=== PATIENT | female | born 1970 | race Caucasian/White ===

== ENCOUNTER 2022-03-07 09:18 | Outpatient (CLI) | payer BC, OTHER ==
--- NOTE | 2022-03-07 11:39 | CT Report ---
PROCEDURE: IVP INDICATIONS: GROSS HEMATURIA CONTRAST: IV CONTRAST: Optiray 320 ml: 140 PO CONTRAST: *NO PO CONTRAST TECHNIQUE: After the administration of oral and intravenous contrast, 5 mm thick sections acquired from the diap hragms to the symphysis. 5 mm thick coronal and sagittal reformats were acquired. For radiation dos e reduction, the following was used: automated exposure control, adjustment of mA and/or kV accordin g to patient size. COMPARISON: None. FINDINGS: Image quality: Excellent. Lung bases: Lung bases are clear. Heart size is normal. Urinary system: Both kidneys are normal in size and enhancement. Contrast-filled renal calyces are normal in morphology. Contrast filled portions of both ureters are normal in caliber. Bladder wall thickness is normal. Solid organs: Liver and spleen are normal in size and enhancement. Gallbladder is unremarkable Morris iary system is non dilated. Pancreas enhances normally. No adrenal nodules. Peritoneum and bowel: Bowel loops demonstrate normal wall thickness and caliber. No free fluid or a ir. Nodes and vessels: No retroperitoneal or mesenteric adenopathy by size criteria. Aorta and inferior vena cava are normal in size. Abdominal wall: Fat-containing ventral hernia. Pelvis: No pathologic free pelvic fluid. No inguinal hernias or adenopathy. Bones: No suspicious bony lesions. No vertebral body compression fractures. IMPRESSION: No renal, ureteral or bladder calculi. No mass lesions. Reviewed by: Es Dean MD on 03/07/2022 11:38 AM PDT Approved by: Es Dean MD on 03/07/2022 11:38 AM PDT Station ID: [id number]
== END 2022-03-07 09:19 | disposition home or self-care (01) ==
LOC: DI 09:18
PROVIDERS: ATTEND Urology
DX: Z87.448 Personal history of other diseases of urinary system (principal)
CPT/HCPCS: 74178; Q9967

== ENCOUNTER 2023-08-17 08:20 | Outpatient (CLI) | payer BC, OTHER ==
--- NOTE | 2023-08-17 13:49 | DEXA Report ---
PROCEDURE: Dexa Spine and/or Hip INDICATIONS: OSTEOPENIA TECHNIQUE: Dual energy x-ray absorptiometry (DXA) was performed on a SimuForm System. Regions measur ed are the AP Spine, femoral neck, and if needed forearm. COMPARISON: None. FINDINGS: Lumbar Spine: Bone Mineral Density: 0.907 g/cm/cm,T score: -2.3. Left Femoral Neck: Bone Mineral Density: 0.690 g/cm/cm, T score: -2.5. Left Hip: Bone Mineral Density: 0.828 g/cm/cm,T score: -1.4. (T score greater or equal to -1.0: NORMAL) (T score from -1.1 to -2.4: OSTEOPENIA) (T score less than or equal to -2.5 to: OSTEOPOROSIS) Impression: By WHO criteria, this patient has osteoporosis. Patients with diagnosis of osteoporosis or osteopenia should have regular bone mineral density assess ment. For those eligible for Medicare, routine testing is allowed once every 2 years. Testing frequ ency can be increased for patients who have rapidly progressing disease or for those who are receivin g medical therapy to restore bone mass. Reviewed by: Chente Wells MD on 08/17/2023 1:48 PM PST Approved by: Chente Wells MD on 08/17/2023 1:48 PM PST Station ID: [id number]
== END 2023-08-17 08:21 | disposition home or self-care (01) ==
LOC: DI 08:20
PROVIDERS: ATTEND Nurse Practitioner Family
DX: M81.0 Age-related osteoporosis without current pathological fracture (principal)

== ENCOUNTER 2023-10-27 08:00 | Outpatient (CLI) | payer BC, OTHER | END 2023-10-27 23:59 | disposition home or self-care (01) | LOC: LAB.WCP 08:00 | PROVIDERS: ATTEND Urology | DX: R31.9 Hematuria, unspecified (principal) | CPT/HCPCS: 87086 ==

== ENCOUNTER 2023-11-08 07:18 | Day surgery (SDC) | payer BC, OTHER ==
[2023-11-08] MEDS: LACTATED RINGERS 1,000 ML IV ONE (07:24)
[2023-11-08] MEDS ORDERED: LIDOCAINE 2% URO-JET 5 ML SYRINGE UR ONE (08:40)
[2023-11-08] MEDS ORDERED: iohexoL-240 10 ML VIAL IVP ONE (08:42)
[2023-11-08] MEDS ORDERED: MIDAZOLAM 2 MG/2 ML VIAL ONE (09:06)
[2023-11-08] MEDS ORDERED: fentaNYL 100 MCG/2 ML VIAL ONE ×2 (09:07→10:16)
[2023-11-08] MEDS ORDERED: PROPOFOL 200 MG/20 ML VIAL IVP ONE ×2 (09:17→10:04)
[2023-11-08] MEDS ORDERED: ONDANSETRON 4 MG/2 ML VIAL ONE (09:17)
[2023-11-08] MEDS: LIDOCAINE 2% URO-JET 5 ML SYRINGE UR ONE (09:35)
--- NOTE | 2023-11-08 09:38 | ANESTHESIA ---
Pre-Anesthesia VS, & Labs - Diagnosis hematuria - Procedure cystoscopy, possible other procedures Height: 5 ft 2 in Weight (kg): 66.2 kg Body Mass Index: 26.6 BMI Classification: Overweight - NPO >8 hours - Is Patient ?: No Home Medications and Allergies Home Medications: Ambulatory Orders Butalb/Acetam/Caff 50/325/40 [Fioricet] 1 each PO Q4-6H PRN 11/01/23 Estrogen,Con/M-Progest Acet [Prempro 0.625-2.5 mg Tablet] 1 each PO DAILY 11/01/23 Mesalamine 4 gm RC DAILY 11/01/23 Mesalamine [Lialda] 4 tab PO BID 11/01/23 Ondansetron Odt [Zofran Odt] 4 mg TL Q6H PRN 11/01/23 Rosuvastatin Calcium 20 mg PO DAILY 11/01/23 Sumatriptan Succinate [Imitrex] 50 mg PO ONCE 11/01/23 Butalb/Acetam/Caff 50/325/40 [Fioricet] 1 each PO Q4-6H PRN 11/01/23 Estrogen,Con/M-Progest Acet [Prempro 0.625-2.5 mg Tablet] 1 each PO DAILY 11/01/23 Mesalamine 4 gm RC DAILY 11/01/23 Mesalamine [Lialda] 4 tab PO BID 11/01/23 Ondansetron Odt [Zofran Odt] 4 mg TL Q6H PRN 11/01/23 Rosuvastatin Calcium 20 mg PO DAILY 11/01/23 Sumatriptan Succinate [Imitrex] 50 mg PO ONCE 11/01/23 Allergies/Adverse Reactions: Allergies Allergy/AdvReac Type Severity Reaction Status Date / Time Penicillins Allergy Hives Verified 11/01/23 13:12 Anes History & Medical History - Anesthetic History Anesthesia Complications: reports: No previous complications Family history of Anesthesia Complications: Denies Family history of Malignant Hyperthermia: Denies - Medical History Cardiovascular: reports: High cholesterol Pulmonary: reports: None Gastrointestinal: reports: Ulcerative colitis Urinary: reports: None Musculoskeletal: reports: Osteoporosis Endocrine/Autoimmune: reports: None Skin: reports: None Psychosocial: reports: Alcohol - Surgical History General: reports: Colonoscopy Gynecologic: reports: Dilation and currettage Exam General: Alert, Oriented x3, Cooperative Dental: WNL Mouth Openin Fingerbreadth Neck Mobility: Normal Mallampati classification: II Thyromental Distance: 4-6 cm Respiratory: Lungs clear Cardiovascular: Regular rate Plan Anesthesia Type: General Consent for Procedure(s) Verified and Reviewed: Yes Code Status: Attempt Resuscitation ASA classification: 2-Mild systemic disease Is this case an emergency?: No
[2023-11-08] MEDS ORDERED: MORPHINE 2 MG/ML CARPUJECT IVP PRN (09:39)
[2023-11-08] MEDS ORDERED: ePHEDrine 50 MG/ML VIAL IVP PRN (09:39)
[2023-11-08] MEDS ORDERED: METOCLOPRAMIDE 10 MG/2 ML VIAL IVP PRN (09:39)
[2023-11-08] MEDS ORDERED: HYDROmorphone 0.5 MG/0.5 ML SYRINGE IVP PRN (09:39)
[2023-11-08] MEDS ORDERED: NALOXONE 0.4 MG/ML VIAL IVP PRN (09:39)
[2023-11-08] MEDS ORDERED: ONDANSETRON 4 MG/2 ML VIAL IVP PRN ×2 (09:39→10:34)
[2023-11-08] MEDS ORDERED: fentaNYL 100 MCG/2 ML VIAL IVP PRN (09:39)
[2023-11-08] MEDS ORDERED: ATROPINE ABBOJECT 1 MG/10 ML SYRINGE IVP PRN (09:39)
[2023-11-08] MEDS: iohexoL-240 10 ML VIAL IVP ONE (09:48)
[2023-11-08] MEDS ORDERED: LACTATED RINGERS 1,000 ML IV SCH (10:00)
[2023-11-08] MEDS ORDERED: KETOROLAC 30 MG/ML VIAL ONE (10:16)
[2023-11-08] MEDS: SODIUM CHLORIDE 0.9% 400 ML IV ONE (10:33)
[2023-11-08] MEDS ORDERED: HYDROcod/ACETAM 5/325 MG TABLET PO PRN (10:34)
--- NOTE | 2023-11-08 10:37 | Discharge Plan ---
Discharge Plan Problem Reviewed?: Yes Disposition: Home, Self Care Condition: Good Prescriptions: Docusate Sodium 100Mg Capsule [Colace 100Mg Capsule] 100 mg PO DAILY #7 cap oxyCODONE [Roxicodone] 5 mg PO Q4H PRN #10 tablet PRN Reason: Pain Diet: Regular Activity Restrictions: Additional Comments (as instructed) Shower Restrictions: No Driving Restrictions: No Instruction Topics: Stents Ureteral Additional Instructions or Follow Up instructions: You will be contacted for follow-up next week with Dr. Kim No Smoking: If you smoke, Please STOP! Call for help. Follow-up with: Eduardo Kim MD [Provider Admit Priv/Credential] -
--- NOTE | 2023-11-08 10:43 | OPERATIVE REPORT ---
Operative Report - General Procedure Date: 11/08/23 Planned Procedure: Cystoscopy, possible bladder biopsy, bilateral diagnostic ureteroscopy, possible ureteral biopsy possible stents Pre-Op Diagnosis: Hematuria Procedure Performed: Cystoscopy, bilateral ureteroscopy, bilateral ureteral dilation, left renal pelvis biopsy, bilateral retrograde pyelogram, bilateral ureteral stent placement Post Op Diagnosis: Hematuria - Procedure Note Primary Surgeon: Julio Anesthesia Provider: VANESSA Rowan Anesthesia Technique: General LMA Pathology: Left kidney urine cytology Right kidney urine cytology Left renal pelvis biopsy Estimated Blood Loss (mL): 2 Findings: Bilateral distal ureteral narrowing requiring dilation Left renal pelvis erythema Complications: none - Other Other Information/Narrative: After informed consent was obtained the patient was brought to the OR and laid in the supine position. The patient was anesthetized per anesthesia protocols and prepped draped in usual sterile fashion in the dorsolithotomy position. A formal timeout was performed reconfirming the patient, procedure and laterality. A 22 [place] cystoscope was advanced easily into urinary bladder. Bladder inspected and full there were no masses, lesions or other concerns. A 5 [place] open-ended catheter was placed in the left UVJ which was noted to be slightly narrow. This was irrigated with saline and the resulting effluent was collected and sent for cytology. A gentle retrograde pyelogram was performed showing no filling defects and otherwise narrow and delicate renal system. A sensor wire was then placed up into the left kidney. We attempted to place a flexible ureteroscope but the distal ureter was too narrow and so this was gently dilated using a 8/10 dilator over Super Stiff wire. We are then able to place the flexible ureteroscope up into the kidney. In the kidney we inspected completely and saw no masses or lesions however the renal pelvis was erythematous which could have been related to our manipulation from earlier but it did seem to be atypical and so a 3 [place] Piranha biopsy cup was used to biopsy a sales representative trainee sample of the mucosa. We then cleared the rest of the kidney and ureter under direct visualization. Attention was then paid to the right side, a 5 [place] open-ended catheter was placed in the right UVJ. We irrigated this with saline but were unable to get any fluid back and so we placed a gentle retrograde pyelogram which confirmed again a narrow distal but otherwise delicate ureteral system and no obvious filling defects on the right. We dilated the ureter using a 8/10 dilator and then a 12/14 sheath. A flexible ureteroscope was advanced up into the kidney. Urine was then collected from the kidney on the right and sent for analysis and cytology. A inspection of the kidney and ureter showed no urothelial concerns and so no biopsy was performed. We placed one 6 [place] 24cm double-J stent in both the left and the right kidney with good curling noted in either kidneys and good curling noted in the bladder. We emptied the bladder and placed a Uro-Jet. The stents were left on strings and were taped using a Tegaderm to her lower pelvis. This concluded the procedure and the patient tolerated the procedure well. She will follow-up in 1 week's time for pathology discussion. She will remove her stents on Wednesday
[2023-11-08 11:57] VITALS: BP 116/69; O2SAT 99
--- NOTE | 2023-11-08 16:02 | ANESTHESIA POST OP EVALUATION ---
Anesthesia Post Eval - Post Anesthesia Eval Vitals: Last Vital Signs Temp 36.3 C L 11/08/23 11:43 Pulse 55 L 11/08/23 11:43 Resp 16 11/08/23 11:43 BP 116/69 11/08/23 11:43 Pulse Ox 99 11/08/23 11:43 O2 Flow Rate CV Function Including HR & BP: Stable Pain Control: Satisfactory Nausea & Vomiting: Negative Mental Status: Baseline Respiratory Status: Airway Patent Hydration Status: Satisfactory Anesthesia Complications: None
--- NOTE | 2023-11-09 12:40 | XRAY Report ---
PROCEDURE: OR C-Arm Procedure INDICATIONS: possible stent placement FLUORO TIME: 1.0 MIN TECHNIQUE: 7 intraoperative fluoroscopic views of left abdomen and pelvis. COMPARISON: CT IVP dated 03/07/2022. FINDINGS: Intraoperative fluoroscopic images shows contrast opacification of left ureter and left renal collect ing system. No intraluminal filling defects or significant hydronephrosis is seen. IMPRESSION: Fluoroscopy guidance was provided intraoperatively for left retrograde urogram. No ureteral stent is seen. Reviewed by: Umesh Reich MD on 11/09/2023 12:38 PM PDT Approved by: Umesh Reich MD on 11/09/2023 12:38 PM PDT Station ID: [id number]
== END 2023-11-08 07:19 | disposition home or self-care (01) ==
LOC: SDS 07:18
PROVIDERS: ATTEND Urology
PROC: 0T788DZ Dilation of Bilateral Ureters with Intraluminal Device, Via Natural or Artificial Opening Endoscopic (ICD-10-PCS; 2023-11-08)
PROC: 0TB48ZX Excision of Left Kidney Pelvis, Via Natural or Artificial Opening Endoscopic, Diagnostic (ICD-10-PCS; principal; 2023-11-08 09:15)
DX: R31.9 Hematuria, unspecified (principal)
CPT/HCPCS: 52332; 52354; C1758; C2617; J7120; Q9966